=== PATIENT | female | born 1980 | race Caucasian/White ===

== ENCOUNTER 2016-11-21 07:51 | Emergency (ER) | payer BC, OTHER ==
[~2016-11-21] VITALS: Ht 177.8 cm; Wt 124.3 kg
[2016-11-21 09:28] LABS: Urine Blood Negative /uL (Negative); Urine Color Brown (Yellow); Urine Glucose Normal (Normal); Urine Mucus FEW (None Seen); Urine RBC 2 /hpf (0 - 4); Urine Squamous Epithelial Cell FEW /hpf (<5)
[2016-11-21 09:54] LABS: Urine Bilirubin Negative (Negative); Urine Ketone 2+ (Negative); Urine Nitrite POSITIVE (Negative)
[2016-11-21 10:18] LABS: Basophils # (auto) 0.1 uL; Basophils % (auto) 1.2 % (0.0-2.0); Eosinophils # (auto) 0.2 uL; Eosinophils % (auto) 2.2 % (0.0-7.0); Hematocrit 41.3 % (36.0-46.0); Hemoglobin 13.9 g/dL (12.2-16.2); Lymphocytes # (auto) 2.4 uL; Lymphocytes % (auto) 23.7 % (10.0-50.0); Mean Corpuscular Hemoglobin 27.9 pg (28.0-32.0); Mean Corpuscular Hgb Conc. 33.7 g/dL (32.0-36.0); Mean Corpuscular Volume 82.7 fL (80.0-100.0); Mean Platelet Volume 8.6 fL (7.4-10.4); Monocytes # (auto) 0.8 uL; Monocytes % (auto) 7.6 % (0.0-12.0); Neutrophils # (auto) 6.6 uL; Neutrophils % (auto) 65.3 % (37.0-80.0); Platelet Count (auto) 327 10^3/uL (140-450); Red Cell Distribution Width 13.9 % (11.6-16.0); White Blood Cell 10.1 10^3/uL (4.4-10.8)
[2016-11-21 10:29] VITALS: BP 148/102
[2016-11-21 10:36] LABS: Bilirubin, Total 0.7 mg/dL (0.2-1.0); Total Protein 8.2 g/dL (6.4-8.2)
== END 2016-11-21 11:32 | disposition home or self-care (01) ==
LOC: ER 07:51
DX: N39.0 Urinary tract infection, site not specified (principal)
CPT/HCPCS: 36415; 80053; 81001; 81025; 85025; 87086

== ENCOUNTER 2017-05-08 20:39 | Emergency (ER) | payer BC ==
[~2017-05-08] VITALS: Ht 177.8 cm; Wt 122.5 kg
[2017-05-08 21:12] LABS: Basophils # (auto) 0.1 uL; Basophils % (auto) 0.8 % (0.0-2.0); Eosinophils # (auto) 0.3 uL; Eosinophils % (auto) 2.1 % (0.0-7.0); Hematocrit 37.4 % (36.0-46.0); Hemoglobin 12.7 g/dL (12.2-16.2); Lymphocytes # (auto) 3.1 uL; Lymphocytes % (auto) 23.1 % (10.0-50.0); Mean Corpuscular Hemoglobin 29.3 pg (28.0-32.0); Mean Corpuscular Volume 86.3 fL (80.0-100.0); Mean Platelet Volume 7.8 fL (6.9-10.8); Monocytes % (auto) 7.2 % (0.0-12.0); Neutrophils # (auto) 8.9 uL; Neutrophils % (auto) 66.8 % (37.0-80.0); Platelet Count (auto) 298 10^3/uL (140-450); White Blood Cell 13.3 10^3/uL (4.4-10.8)
[2017-05-08 21:13] LABS: Urine Bilirubin Negative (Negative); Urine Blood 3+ /uL (Negative); Urine Color Yellow (Yellow); Urine Glucose Normal (Normal); Urine Ketone Negative (Negative); Urine Mucus FEW (None Seen); Urine Nitrite Negative (Negative); Urine RBC 817 /hpf (0 - 4); Urine Sperm PRESENT /hpf (None Seen); Urine Squamous Epithelial Cell FEW /hpf (<5); Urine Urobilinogen Normal (Negative); Urine pH 6.5 (5.0-8.0)
[2017-05-08 21:28] LABS: INR 0.94 (0.9-1.15); Partial Thromboplastin Time 28.4 sec (22.64-33.71); Prothrombin Time 10.2 sec (9.37-12.3)
[2017-05-08 21:48] LABS: Albumin 3.5 g/dL (3.4-5.0); BUN/Creatinine Ratio 15.3; Bilirubin, Total 0.4 mg/dL (0.2-1.0); Calcium 9.1 mg/dL (8.5-10.1); Potassium 3.4 mmol/L (3.5-5.1); Total Protein 7.9 g/dL (6.4-8.2)
[2017-05-09 02:42] VITALS: BP 126/77
== END 2017-05-09 04:42 | disposition home or self-care (01) ==
LOC: ER 20:45
DX: O20.0 Threatened abortion (principal); Z3A.08 8 weeks gestation of pregnancy
CPT/HCPCS: 36415; 76801; 76817; 80053; 81001; 84702; 85025; 85610; 85730